=== PATIENT | female | born 1965 | race Caucasian/White ===

== ENCOUNTER → 2017-08-03 13:55 | Outpatient (CLI) | payer MEDICARE, MEDICAID | END | disposition home or self-care (01) | LOC: D.MRI 13:55 | DX: M54.17 Radiculopathy, lumbosacral region (principal) ==

== ENCOUNTER → 2017-09-25 15:13 | Outpatient (CLI) | payer MEDICARE, MEDICAID | END | disposition home or self-care (01) | LOC: D.RAD 15:13 | DX: M54.9 Dorsalgia, unspecified (principal); M54.2 Cervicalgia ==